=== PATIENT | female | born 1995 | race Caucasian/White ===

== ENCOUNTER 2019-07-30 13:57 | Emergency (ER) | payer OTHER ==
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
== END 2019-07-30 14:54 | disposition home or self-care (01) ==
LOC: JD.ED 13:57
DX: S00.03XA Contusion of scalp, initial encounter (principal); E03.9 Hypothyroidism, unspecified; Z88.1 Allergy status to other antibiotic agents; Z79.890 Hormone replacement therapy; V43.53XA Car driver injured in collision with pick-up truck in traffic accident, initial encounter; Y92.410 Unspecified street and highway as the place of occurrence of the external cause
CPT/HCPCS: 99283

== ENCOUNTER 2019-08-10 19:02 | Emergency (ER) | payer OTHER ==
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
== END 2019-08-10 20:24 | disposition home or self-care (01) ==
LOC: JD.ED 19:02
DX: M54.12 Radiculopathy, cervical region (principal); E03.9 Hypothyroidism, unspecified; Z79.890 Hormone replacement therapy; Z88.1 Allergy status to other antibiotic agents
CPT/HCPCS: 99283

== ENCOUNTER 2020-05-17 08:13 | Emergency (ER) | payer OTHER ==
[2020-05-17] MEDS ORDERED: Ondansetron 4 MG/2 ML SDV IVPUSH ONE (08:46)
[2020-05-17] MEDS ORDERED: Sodium Chloride 0.9% 10 ML Syringe FLUSH PRN (08:46)
[2020-05-17] MEDS ORDERED: Sodium Chloride 0.9% 1,000 ML IV SCH (09:00)
--- NOTE | 2020-05-17 11:32 | EDM.PDOC ---
ED HPI GENERAL MEDICAL PROBLEM - General Chief Complaint: Gastrointestinal Problem Stated Complaint: VOMITING AND DIARRHEA X 3 DAYS Time Seen by Provider: 05/17/20 08:40 Source of Information: Reports: Patient, RN Notes Reviewed - History of Present Illness INITIAL COMMENTS - FREE TEXT/NARRATIVE: 25 yr old female with onset of N/V, abd cramps, diarrhea 3 days ago, 1 day after eating some raw cookie dough. Sx continue today. About 20 or more episodes of watery diarrhea yesterday. No chest pain or difficulty breathing. 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 Denies: Fever HEENT: Denies: Throat Pain Respiratory: Denies: Shortness of Breath, Cough Cardiovascular: Denies: Chest Pain GI/Abdominal: Reports: Abdominal Pain, Diarrhea, Nausea, Vomiting Musculoskeletal: Reports: No Symptoms Skin: Reports: No Symptoms Neurological: Reports: Dizziness ED EXAM, GI/ABD - Physical Exam Exam: See Below General Appearance: Alert, Mild Distress Head: Atraumatic Neck: Supple Respiratory/Chest: No Respiratory Distress, Lungs Clear Cardiovascular: Tachycardia GI/Abdominal Exam: Soft, Tender (mild mid tenderness). No: Guarding, Rebound Extremities: Normal Inspection, Normal Range of Motion Neurological: Alert, Oriented, No Motor/Sensory Deficits Skin Exam: Warm, Dry, Normal Color Course - Vital Signs Last Recorded V/S: Last Vital Signs Temp 97.5 F 05/17/20 08:29 Pulse 104 H 05/17/20 08:29 Resp 18 05/17/20 08:29 BP 123/87 05/17/20 08:29 Pulse Ox 98 05/17/20 08:29 - Orders/Labs/Meds Labs: Laboratory Tests 05/17/20 05/17/20 Range/Units 08:55 08:55 WBC 10.13 H (3.98-10.04) K/mm3 RBC 5.06 (3.98-5.22) M/mm3 Hgb 14.5 (11.2-15.7) gm/dl Hct 43.7 (34.1-44.9) % MCV 86.4 (79.4-94.8) fl MCH 28.7 (25.6-32.2) pg MCHC 33.2 (32.2-35.5) g/dl RDW Std Deviation 44.0 (36.4-46.3) fL Plt Count 435 H (182-369) K/mm3 MPV 9.0 L (9.4-12.3) fl Neut % (Auto) 74.7 H (34.0-71.1) % Lymph % (Auto) 15.0 L (19.3-51.7) % [place] % (Auto) 7.0 (4.7-12.5) % Eos % (Auto) 3.1 (0.7-5.8) Baso % (Auto) 0.1 (0.1-1.2) % Neut # (Auto) 7.57 H (1.56-6.13) K/mm3 Lymph # (Auto) 1.52 (1.18-3.74) K/mm3 [place] # (Auto) 0.71 H (0.24-0.36) K/mm3 Eos # (Auto) 0.31 (0.04-0.36) K/mm3 Baso # (Auto) 0.01 (0.01-0.08) K/mm3 Manual Slide Review Normal smear Sodium 137 (136-145) mEq/L Potassium 3.6 (3.5-5.1) mEq/L Chloride 101 (98-107) mEq/L Carbon Dioxide 22 (21-32) mEq/L Anion Gap 17.6 H (5-15) BUN 15 (7-18) mg/dL Creatinine 1.0 (0.55-1.02) mg/dL Est Cr Clr Drug Dosing 73.62 mL/min Estimated GFR (MDRD) > 60 (>60) mL/min BUN/Creatinine Ratio 15.0 (14-18) Glucose 117 H (74-106) mg/dL Calcium 8.9 (8.5-10.1) mg/dL Total Bilirubin 1.0 (0.2-1.0) mg/dL AST 101 H (15-37) U/L ALT 144 H (14-59) U/L Alkaline Phosphatase 100 (46-116) U/L Total Protein 8.6 H (6.4-8.2) g/dl Albumin 4.0 (3.4-5.0) g/dl Globulin 4.6 gm/dL Albumin/Globulin Ratio 0.9 L (1-2) Meds: Medications Discontinued Medications Generic Name Dose Route Start Last Admin Trade Name Freq PRN Reason Stop Dose Admin Sodium Chloride 1,000 mls @ 999 mls/hr 05/17/20 09:00 05/17/20 09:02 Normal Saline IV 999 mls/hr ONETIME NADIA Administration Ondansetron HCl 4 mg 05/17/20 08:46 05/17/20 09:02 Zofran IVPUSH 05/17/20 08:47 4 mg ONETIME ONE Administration Sodium Chloride 10 ml 05/17/20 08:46 05/17/20 09:02 Saline Flush FLUSH 10 ml ASDIRECTED PRN Administration Keep Vein Open - Re-Assessments/Exams Free Text/Narrative Re-Assessment/Exam: 05/19/20 14:01 feeling much better after zofran, NS IV. Discharge instr. as documented. Departure - Departure Time of Disposition: 11:30 Disposition: Home, Self-Care 01 Condition: Fair Clinical Impression: Vomiting, Diarrhea, Abdominal pain - Discharge Information Prescriptions: Sulfamethoxazole/Trimethoprim [Bactrim Ds Tablet] 1 each PO BID #10 tablet Ondansetron [Zofran ODT] 4 mg PO Q8HR PRN #7 tab.dis PRN Reason: Nausea/Vomiting Instructions: Nausea and Vomiting, Adult, [id number] Referrals: Ghazala Blank PA-C [Primary Care Provider] - Forms: ED Department Discharge Additional Instructions: Clear liquids for 1 to 2 days until sx resolving. Zofran up to q 8 hr if needed for further nausea or vomiting. Bactrim DS 1 tab twice daily for 5 days. Prescriptions have been sent to [facility]. Follow up clinic if not getting back to normal within 3 to 5 days, return to ED as needed. Sepsis Event Note (ED) - Evaluation Sepsis Screening Result: No Definite Risk
== END 2020-05-17 11:40 | disposition home or self-care (01) ==
LOC: JD.ED 08:13
DX: R10.9 Unspecified abdominal pain (principal); R11.2 Nausea with vomiting, unspecified; R19.7 Diarrhea, unspecified; R00.2 Palpitations; E03.9 Hypothyroidism, unspecified; Z88.1 Allergy status to other antibiotic agents; Z79.899 Other long term (current) drug therapy
CPT/HCPCS: 36415; 80053; 85025; 96361; 96374; 99284; J2405; J7030

== ENCOUNTER 2020-08-23 17:51 | Emergency (ER) | payer OTHER, BC ==
[2020-08-23] MEDS ORDERED: Sodium Chloride 0.9% 1,000 ML IV STA (18:39)
--- NOTE | 2020-08-23 18:40 | EDM.PDOC ---
ED HPI GENERAL MEDICAL PROBLEM - General Chief Complaint: Gastrointestinal Problem Stated Complaint: blood in vomit post op Time Seen by Provider: 08/23/20 18:31 Source of Information: Reports: Patient, RN Notes Reviewed History Limitations: Reports: No Limitations - History of Present Illness INITIAL COMMENTS - FREE TEXT/NARRATIVE: Patient is a 25-year-old female presenting to the emergency department with complaints of epigastric discomfort, as well as 3 episodes of vomiting with some small spots of blood in the emesis. She is 1 week postop gastric bypass with Dr. Turner at [facility] in [place]. She states she has been on a full liquid diet since the surgery, however today she had a small amount of mashed potatoes. After this she experienced the episodes of vomiting as well as a slight increase in her epigastric discomfort. She has had 1 other episode of vomiting since arriving to the ER. She describes the amount of blood as small but states that it almost looked like it was coagulated. He said her surgery had gone well and there was no complications. This is the first time she has had vomiting since her surgery. Abdomen Pain Score (Numeric/FACES): 6 - Related Data Allergies Allergy/AdvReac Type Severity Reaction Status Date / Time erythromycin base Allergy Insomnia Verified 08/23/20 18:26 [From [facility] Home Meds: Home Meds Cholecalciferol (Vitamin D3) [Vitamin D3] 500 unit PO DAILY 07/30/19 [History] Levothyroxine 150 mcg PO DAILY 07/30/19 [History] Vitamin B Complex 1 tab PO DAILY 07/30/19 [History] Ondansetron [Zofran ODT] 4 mg PO Q8HR PRN #7 tab.dis 05/17/20 [Rx] Sulfamethoxazole/Trimethoprim [Bactrim Ds Tablet] 1 each PO BID #10 tablet 05/17/20 [Rx] buPROPion HCL [Wellbutrin Xl] 300 mg PO DAILY 05/17/20 [History] 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: Reports: Polycystic Ovaries Endocrine/Metabolic History: Reports: Hypothyroidism - Past Surgical History HEENT Surgical History: Reports: Tonsillectomy GI Surgical History: Reports: Appendectomy, Bariatric Procedure, Cholecystectomy, Other (See Below) Other GI Surgeries/Procedures: gastric bypass Female Surgical History: Reports: Section Social & Family History - Tobacco Use Tobacco Use Status *Q: Never Tobacco User Second Hand Smoke Exposure: No - Caffeine Use Caffeine Use: Reports: None - Recreational Drug Use Recreational Drug Use: No ED ROS GENERAL - Review of Systems Review Of Systems: See Below Constitutional: Reports: No Symptoms HEENT: Reports: No Symptoms Respiratory: Reports: No Symptoms Cardiovascular: Reports: No Symptoms Endocrine: Reports: No Symptoms GI/Abdominal: Reports: Abdominal Pain (Epigastric), Nausea, Vomiting. Denies: Diarrhea : Reports: No Symptoms Musculoskeletal: Reports: No Symptoms Skin: Reports: No Symptoms Neurological: Reports: No Symptoms Psychiatric: Reports: No Symptoms Hematologic/Lymphatic: Reports: No Symptoms Immunologic: Reports: No Symptoms ED EXAM, GI/ABD - Physical Exam Exam: See Below Exam Limited By: No Limitations General Appearance: Alert, WD/WN, No Apparent Distress Respiratory/Chest: No Respiratory Distress, Lungs Clear, Normal Breath Sounds, No Accessory Muscle Use, Chest Non-Tender Cardiovascular: Normal Peripheral Pulses, Regular Rate, Rhythm, No Edema, No Gallop, No JVD, No Murmur, No Rub GI/Abdominal Exam: Normal Bowel Sounds, Soft, No Organomegaly, No Distention, No Abnormal Bruit, No Mass, Pelvis Stable, Tender (Epigastric) Neurological: Alert, Oriented, CN II-XII Intact, Normal Cognition, Normal Gait, Normal Reflexes, No Motor/Sensory Deficits Psychiatric: Normal Affect, Normal Mood Skin Exam: Warm, Dry, Intact, Normal Color, No Rash Course - Vital Signs Last Recorded V/S: Last Vital Signs Temp 97 F 08/23/20 18:23 Pulse 90 08/23/20 18:23 Resp 18 08/23/20 18:23 BP 124/76 08/23/20 18:23 Pulse Ox 96 08/23/20 18:23 - Orders/Labs/Meds Labs: Laboratory Tests 08/23/20 08/23/20 08/23/20 Range/Units 19:00 19:00 20:13 WBC 15.10 H (3.98-10.04) K/mm3 RBC 4.77 (3.98-5.22) M/mm3 Hgb 13.6 (11.2-15.7) gm/dl Hct 41.1 (34.1-44.9) % MCV 86.2 (79.4-94.8) fl MCH 28.5 (25.6-32.2) pg MCHC 33.1 (32.2-35.5) g/dl RDW Std Deviation 43.8 (36.4-46.3) fL Plt Count 499 H (182-369) K/mm3 MPV 9.2 L (9.4-12.3) fl Neut % (Auto) 74.7 H (34.0-71.1) % Lymph % (Auto) 17.9 L (19.3-51.7) % Hernando % (Auto) 5.9 (4.7-12.5) % Eos % (Auto) 1.2 (0.7-5.8) Baso % (Auto) 0.1 (0.1-1.2) % Neut # (Auto) 11.28 H (1.56-6.13) K/mm3 Lymph # (Auto) 2.70 (1.18-3.74) K/mm3 Hernando # (Auto) 0.89 H (0.24-0.36) K/mm3 Eos # (Auto) 0.18 (0.04-0.36) K/mm3 Baso # (Auto) 0.02 (0.01-0.08) K/mm3 Manual Slide Review Abnormal smear Sodium 137 (136-145) mEq/L Potassium 3.8 (3.5-5.1) mEq/L Chloride 102 (98-107) mEq/L Carbon Dioxide 25 (21-32) mEq/L Anion Gap 13.8 (5-15) BUN 13 (7-18) mg/dL Creatinine 0.9 (0.55-1.02) mg/dL Est Cr Clr Drug Dosing 81.80 mL/min Estimated GFR (MDRD) > 60 (>60) mL/min BUN/Creatinine Ratio 14.4 (14-18) Glucose 87 (74-106) mg/dL Calcium 8.9 (8.5-10.1) mg/dL Total Bilirubin 0.4 (0.2-1.0) mg/dL AST 17 (15-37) U/L ALT 34 (14-59) U/L Alkaline Phosphatase 73 (46-116) U/L Total Protein 8.3 H (6.4-8.2) g/dl Albumin 3.8 (3.4-5.0) g/dl Globulin 4.5 gm/dL Albumin/Globulin Ratio 0.8 L (1-2) SARS-CoV-2 RNA (ELISE) Positive H (NEGATIVE) Meds: Medications Discontinued Medications Generic Name Dose Route Start Last Admin Trade Name Freq PRN Reason Stop Dose Admin Diatrizoate Meglum/Diatrizoate Sod 40 ml 08/23/20 18:49 08/23/20 19:24 Gastrografin 37% PO 08/23/20 18:50 Not Given ONETIME ONE Diphenhydramine HCl 25 mg 08/23/20 19:40 08/23/20 19:48 Benadryl IVPUSH 08/23/20 19:41 25 mg ONETIME ONE Administration Sodium Chloride 1,000 mls @ 150 mls/hr 08/23/20 18:39 08/23/20 18:58 Normal Saline IV 08/24/20 01:18 150 mls/hr NOW STA Administration Iopamidol 100 ml 08/23/20 18:49 08/23/20 19:42 Isovue-300 (61%) IVPUSH 08/23/20 18:50 100 ml ONETIME ONE Administration Iopamidol 25 ml 08/23/20 18:50 08/23/20 19:42 Isovue-300 (61%) IVPUSH 08/23/20 18:51 25 ml ONETIME ONE Administration Metoclopramide HCl 7.5 mg 08/23/20 19:40 08/23/20 19:48 Reglan IVPUSH 08/23/20 19:41 7.5 mg ONETIME ONE Administration Ondansetron HCl 4 mg 08/23/20 18:43 08/23/20 18:58 Zofran IVPUSH 08/23/20 18:44 4 mg ONETIME ONE Administration Sodium Chloride 10 ml 08/23/20 18:49 08/23/20 19:42 Saline Flush FLUSH 10 ml ONETIME PRN Administration Keep Vein Open - Re-Assessments/Exams Free Text/Narrative Re-Assessment/Exam: Patient is a 25-year-old female presenting to the emergency department with complaints of epigastric discomfort as well as nausea and vomiting with some small amount of blood in her emesis. Patient is 1 week postop from gastric bypass surgery. States today she advanced her diet to a soft diet as opposed to full liquid. She had some nathaniel potatoes and shortly thereafter had vomiting. She had 3 episodes of vomiting and each time she vomited there was a small amount of blood present. She does have some epigastric discomfort which she states is slightly increased from her discomfort prior to the incident. This is a first-time she is had emesis since surgery. I have ordered CBC, CMP, CRP, CT scan of the abdomen pelvis with IV and oral contrast as tolerated. We will start IV fluids of NS as well as Zofran 4 mg IV for nausea. 08/23/202019 CT scan of the abdomen pelvis shows mild to moderate small bowel obstruction involving the small bowel loop associated to the gastric bypass with a transition point identified at the distal enteroenteric anastomosis. There is no evidence of bowel perforation appreciated at this time. Called and spoke with the general surgeon on-call at [facility] Dr. Ly, as Dr. Turner is not on-call. Recommend transfer admission of this patient. Unfortunately do not have available beds. I will call and speak with [facility]. 08/23/202044 [facility] and spoke to the bariatric surgeon, Dr. Matthews. He verbalized that he would take the patient for transfer, however he feels that the patient should be transferred to [facility] as this is where her surgeon was located and it is much closer for the patient. He feels that the patient should be able to be taken through the ED until a bed becomes available. I will attempt to contact [facility] again to see if arrangements can be made. 08/23/[id number] Received a call back from Ilene, 1 call nurse at [facility]. They were able to make room for the patient, however in the meantime her Covid screen came back positive. They stated that they were unable to accept the patient as they have no Covid beds available. I will call [facility] back. 08/23/202344 After much discussion [id number] with Dr. Matthews and [address] [facility] and 1 call at [facility], as well as administrators at [facility], arrangements have been made for the patient to be transferred to [facility] for care. She will go by ground ambulance. Accepting physician is Dr. Claudio. Patient updated and is in agreement. Departure - Departure Time of Disposition: 23:45 Disposition: DC/Tfer to Acute Hospital 02 Condition: Good Clinical Impression: Small bowel obstruction, COVID-19 - Discharge Information Referrals: Ghazala Blank PA-C [Primary Care Provider] - Lola Turner MD [Ordering Only Provider] - Forms: ED Department Discharge Sepsis Event Note (ED) - Evaluation Sepsis Screening Result: No Definite Risk
[2020-08-23] MEDS ORDERED: Ondansetron 4 MG/2 ML SDV IVPUSH ONE (18:43)
[2020-08-23] MEDS ORDERED: Iopamidol 612 MG/ML 100 ML Bottle IVPUSH ONE (18:49)
[2020-08-23] MEDS ORDERED: Diatrizoate Meglumine/Diatrizoate Sodium 37% 120 ML Bottle PO ONE (18:49)
[2020-08-23] MEDS ORDERED: Iopamidol 612 MG/ML 50 ML SDV IVPUSH ONE (18:50)
[2020-08-23] MEDS: Sodium Chloride 0.9% 10 ML Syringe FLUSH PRN ×2 (18:58→19:42)
[2020-08-23] MEDS ORDERED: Metoclopramide 10 MG/2 ML SDV IVPUSH ONE (19:40)
[2020-08-23] MEDS ORDERED: diphenhydrAMINE 50 MG/ML SDV IVPUSH ONE (19:40)
--- NOTE | 2020-08-24 09:00 | CT ---
PROCEDURE INFORMATION: Exam: CT Abdomen And Pelvis With Contrast Exam date and time: 08/23/2020 7:28 PM Age: 25 years old Clinical indication: Abdominal pain; Prior surgery; Surgery date: 3-7 days post- operative; Surgery type: Gastric bypass; Patient HX: Bloody vomit, epigastric px 1week post op; Additional info: On day 4 of period TECHNIQUE: Imaging protocol: Computed tomography of the abdomen and pelvis with intravenous contrast. Contrast material: ISOVUE 370; Contrast volume: 125 ml; Contrast route: INTRAVENOUS (IV); COMPARISON: No relevant prior studies available. FINDINGS: Lungs: The visualized portions of the lung bases demonstrate no acute disease. Liver: There is mild enlargement of the liver. There is a diffuse decrease in hepatic parenchymal density, consistent with fatty infiltration. Gallbladder and bile ducts: Patient status post cholecystectomy. No biliary ductal dilation. Pancreas: Normal. No ductal dilation. Spleen: Normal. No splenomegaly. Adrenal glands: Normal. No mass. Kidneys and ureters: Normal. No hydronephrosis. Stomach and bowel: Lung segment of dilated proximal small bowel extending from the proximal gastro jejunal anastomosis to the distal enteroenteric anastomosis in the left hemiabdomen. The point of transition appears to be related to the distal enteroenteric anastomosis with the proximal dilated loops of bowel measuring up to 4.1 cm in greatest diameter. The remainder of the small bowel appears unremarkable. There is no evidence of bowel perforation. Appendix: No evidence of appendicitis. Intraperitoneal space: Small amount of free fluid in the pelvis. No pneumoperitoneum. No fluid collections. Vasculature: Unremarkable. No abdominal aortic aneurysm. Lymph nodes: Unremarkable. No enlarged lymph nodes. Urinary bladder: Unremarkable as visualized. Reproductive: Reproductive organs appear otherwise unremarkable. Bones/joints: No acute abnormality or aggressive osseous lesion. Soft tissues: Mild soft tissue postsurgical changes in the anterior abdominal wall related to the trocar insertion sites. No complications are noted. There is a cervical diaphragm appreciated. IMPRESSION: [id number] small-bowel obstruction involving the small bowel loop associated to the gastric bypass with the transition point identified at the distal enteroenteric anastomosis. There is no evidence of bowel perforation appreciated at this time. COMMENTS: THIS REPORT CONTAINS FINDINGS THAT MAY BE CRITICAL TO PATIENT CARE. The findings were verbally communicated via telephone conference with MURRAY MACIAS at 9:05 PM [employer]PER[employer] CONSULTANT on 08/23/2020. The findings were acknowledged and understood. Thank you for allowing us to participate in the care of your patient. Dictated and Authenticated by: Martin Chen MD 08/23/2020 9:08 PM Central Time ([place] & [place]) [place]
== END 2020-08-24 00:30 ==
LOC: JD.ED 17:51
DX: U07.1 COVID-19 (principal); K56.609 Unspecified intestinal obstruction, unspecified as to partial versus complete obstruction; E03.9 Hypothyroidism, unspecified; Z88.1 Allergy status to other antibiotic agents; Z79.899 Other long term (current) drug therapy
CPT/HCPCS: 36415; 74177; 80053; 85025; 87635; 96374; 96375; 99285; J1200; J2405; J2765; J7030; Q9963; Q9967; U0002

== ENCOUNTER 2021-12-19 07:47 | Inpatient (IN) | payer BC ==
[2021-12-19] MEDS ORDERED: Nalbuphine 10 MG/1 ML Vial IVPUSH PRN (08:24)
[2021-12-19] MEDS ORDERED: Oxytocin/Lactated Ringers 10 UNIT/1,000 ML BAG IV SCH ×2 (08:30)
[2021-12-19] MEDS ORDERED: Lactated Ringers 1,000 ML IV SCH (08:30)
[2021-12-19] MEDS ORDERED: Sodium Chloride 0.9% 10 ML Syringe FLUSH SCH (09:00)
[2021-12-19] MEDS ORDERED: FLU Vacc QS2021-22 36MOS UP/PF 60 MCG/0.5 ML Syringe IM ONE (09:45)
[2021-12-19] MEDS ORDERED: Citric Acid/Sodium Citrate Solution 30 ML Cup PO ONE (16:59)
[2021-12-19] MEDS ORDERED: Oxytocin 10 Units/1 ML SDV ONE (16:59)
[2021-12-19] MEDS ORDERED: ceFAZolin 2 GM in Sodium Chloride 0.9% 50 ML IV ONE (16:59)
[2021-12-19] MEDS ORDERED: Metoclopramide 10 MG/2 ML SDV IVPUSH ONE (16:59)
[2021-12-19] MEDS ORDERED: Ondansetron 4 MG/2 ML SDV ONE (17:01)
[2021-12-19] MEDS ORDERED: Ketorolac 30 MG/ML SDV ONE (17:02)
[2021-12-19] MEDS ORDERED: ceFAZolin 1 GM Vial ONE (17:02)
[2021-12-19] MEDS ORDERED: Metoclopramide 10 MG/2 ML SDV ONE (17:02)
[2021-12-19] MEDS ORDERED: Citric Acid/Sodium Citrate Solution 30 ML Cup ONE (17:03)
[2021-12-19] MEDS ORDERED: ePHEDrine 50 MG/ML SDV ONE (17:25)
[2021-12-19] MEDS ORDERED: Methylergonovine 0.2 MG/1 ML Amp ONE (17:50)
[2021-12-19] MEDS ORDERED: diphenhydrAMINE 50 MG/ML SDV IVPUSH PRN ×2 (18:29→19:21)
[2021-12-19] MEDS ORDERED: fentaNYL 100 MCG/2 ML SDV IVPUSH PRN (18:29)
[2021-12-19] MEDS ORDERED: Ondansetron 4 MG/2 ML SDV IVPUSH PRN (18:29)
[2021-12-19] MEDS ORDERED: Meperidine 50 MG/ML Vial IVPUSH PRN (18:29)
[2021-12-19] MEDS ORDERED: Ondansetron 4 MG/2 ML SDV IV PRN (19:21)
[2021-12-19] MEDS ORDERED: Docusate Sodium 100 MG Cap PO PRN (19:21)
[2021-12-19] MEDS ORDERED: Dextrose 5%-Lactated Ringers 1,000 ML IV SCH (19:21)
[2021-12-19] MEDS ORDERED: Naloxone 0.4 MG/ML SDV IVPUSH PRN (19:21)
[2021-12-19] MEDS: Acetaminophen/oxyCODONE 325-5 MG Tab PO PRN (19:42)
[2021-12-19] MEDS ORDERED: QUEtiapine 25 MG Tab PO PRN (21:00)
[2021-12-19] MEDS ORDERED: Aluminum Hydroxide/Magnesium Hydroxide/Simethicone Susp 30 ML Cup PO PRN (21:43)
[2021-12-20] MEDS ORDERED: Calcium Carbonate 500 MG Tab.Chew PO PRN (01:01)
[2021-12-20] MEDS: Acetaminophen/oxyCODONE 325-5 MG Tab PO PRN ×5 (02:45→21:03)
[2021-12-20] MEDS: Levothyroxine 75 MCG Tab PO SCH (06:53)
[2021-12-20] MEDS ORDERED: FLU Vacc QS2021-22 36MOS UP/PF 60 MCG/0.5 ML Syringe IM ONE (09:00)
[2021-12-21] MEDS: Acetaminophen/oxyCODONE 325-5 MG Tab PO PRN ×3 (01:55→10:55)
[2021-12-21] MEDS: Levothyroxine 75 MCG Tab PO SCH (05:48)
== END 2021-12-21 12:15 | disposition home or self-care (01) | DRG 540 ==
LOC: JD.OBCHECK 07:47 → JD.OB 07:52 → JD.OBCHECK 07:57 → JD.OB 11:30 → OBSVTOIN 17:41 → JD.OB 17:42
PROVIDERS: ADMIT Obstetrics & Gynecology; ATTEND Obstetrics & Gynecology
PROC: 10D00Z1 Extraction of Products of Conception, Low, Open Approach (ICD-10-PCS; principal; 2021-12-19)
DX: O34.211 Maternal care for low transverse scar from previous cesarean delivery (principal); Z3A.37 37 weeks gestation of pregnancy; Z37.0 Single live birth; O42.913 Preterm premature rupture of membranes, unspecified as to length of time between rupture and onset of labor, third trimester; O99.284 Endocrine, nutritional and metabolic diseases complicating childbirth; E03.9 Hypothyroidism, unspecified; O99.344 Other mental disorders complicating childbirth; F32.A Depression, unspecified; O76 Abnormality in fetal heart rate and rhythm complicating labor and delivery; F41.9 Anxiety disorder, unspecified
CPT/HCPCS: 01961; 36415; 59025; 85025; 85027; 86592; 86850; 86900; 86901; 90686; 94762; A9270-GY; G0008; J0690; J1885; J2210; J2405; J2590; J2765; J7120; J7121